=== PATIENT | female | born 1945 | race Caucasian/White ===

== ENCOUNTER 2017-06-02 07:40 | Emergency (ER) | payer OTHER ==
[2017-06-02 07:48] VITALS: BP 111/90; PULSE 78; RESP 16; TEMP 97.9; O2SAT 98
[2017-06-02] MEDS ORDERED: HYOSCYAMINE SULFATE 0.125 MG TAB PO ONE (07:50)
[2017-06-02] MEDS ORDERED: LIDOCAINE 2% VISCOUS 15 ML UDCUP PO ONE (07:50)
[2017-06-02] MEDS ORDERED: MAG HYDROX/AL HYDROX/SIMETH 30 ML UDCUP PO ONE (07:50)
--- NOTE | 2017-06-02 07:53 | EDPHY ---
H & P Stated Complaint: Dx flu 6 days ago, nonproctive cough and epigastric pain. On tamiflu Time Seen by Provider: 06/02/17 07:50 HPI/ROS: CHIEF COMPLAINT: Epigastric pain, cough HISTORY OF PRESENT ILLNESS: The patient is a 71-year-old female who was diagnosed last week with a flu. Yesterday she finished a course of Tamiflu. She states that every day she has taken it she has developed increasing heartburn and epigastric discomfort. She eventually vomited this morning nonbloody. She has been having formed bowel movements but more frequent bowel movements. No fever. Her cough has persisted but is dry. No shortness of breath. No chest pain. REVIEW OF SYSTEMS: Constitutional: denies: chills, fever, recent illness, recent injury EENTM: denies: blurred vision, double vision, nose congestion Respiratory: denies: cough, shortness of breath Cardiac: denies: chest pain, irregular heart rate, lightheadedness, palpitations Gastrointestinal/Abdominal: See HPI Genitourinary: denies: dysuria, frequency, hematuria, pain Musculoskeletal: denies: joint pain, muscle pain Skin: denies: lesions, rash, jaundice, bruising Neurological: denies: headache, numbness, paresthesia, tingling, dizziness, weakness Hematologic/Lymphatic: denies: blood clots, easy bleeding, easy bruising Immunologic/allergic: denies: HIV/AIDS, transplant EXAM: GENERAL: Well-appearing, well-nourished and in no acute distress. HEAD: Atraumatic, normocephalic. EYES: Pupils equal round and reactive to light, extraocular movements intact, sclera anicteric, conjunctiva are normal. ENT: TMs normal, nares patent, oropharynx clear without exudates. Moist mucous membranes. NECK: Normal range of motion, supple without lymphadenopathy or JVD. LUNGS: Breath sounds clear to auscultation bilaterally and equal. No wheezes rales or rhonchi. HEART: Regular rate and rhythm without murmurs, rubs or gallops. ABDOMEN: Soft, nontender, normoactive bowel sounds. No guarding, no rebound. No masses appreciated. BACK: No CVA tenderness, no spinal tenderness, step-offs or deformities EXTREMITIES: Normal range of motion, no pitting or edema. No clubbing or cyanosis. NEUROLOGICAL: Cranial nerves II through XII grossly intact. Normal speech, normal gait. 5/5 strength, normal movement in all extremities, normal sensation PSYCH: Normal mood, normal affect. SKIN: Warm, dry, normal turgor, no visible rashes or lesions. Source: Patient, Family - Personal History Current Tetanus/Diphtheria Vaccine: No Current Tetanus Diphtheria and Acellular Pertussis (TDAP): No - Medical/Surgical History Hx Asthma: No Hx Chronic Respiratory Disease: No Hx Diabetes: No Hx Cardiac Disease: No Hx Renal Disease: No Hx Cirrhosis: No Hx Alcoholism: No Hx HIV/AIDS: No Hx Splenectomy or Spleen Trauma: No Other PMH: Hyperlipidemia, kidney cancer - Family History Significant Family History: No pertinent family hx - Social History Smoking Status: Never smoked Alcohol Use: Sober Constitutional: Initial Vital Signs Temperature (C) 36.6 C 06/02/17 07:42 Heart Rate 78 06/02/17 07:42 Respiratory Rate 16 06/02/17 07:42 Blood Pressure 111/90 H 06/02/17 07:42 O2 Sat (%) 98 06/02/17 07:42 O2 Delivery Mode Room Air Allergies/Adverse Reactions: Penicillins Allergy (Verified 06/02/17 07:49) Pt reports hives Home Medications: Medication Instructions Recorded Famotidine [Pepcid 20 MG (OTC)] 20 mg PO BID #30 tab 06/02/17 Lipitor 06/02/17 Medical Decision Making ED Course/Re-evaluation: The patient is well appearing. She has no abdominal tenderness. She thinks she is having a reaction to Tamiflu. I will start her on antacids and give her GI cocktail here. Fortunately she finished Tamiflu yesterday. She declines lab work , EKG or imaging at this time. I encouraged her to return immediately if her symptoms worsen or she desires testing. We discussed Tamiflu and its limitations. She was surprised that she was not yet over the flu. The patient is feeling completely better after GI cocktail. She is very relieved. Will prescribe her Pepcid. Differential Diagnosis: Partial list of the Differential diagnosis considered include but were not limited to; influenza, medication reaction, GERD, peptic ulcer disease and although unlikely based on the history and physical exam, I also considered biliary disease, perforation, obstruction, ischemia. - Data Points Medications Given: Discontinued Medications Al Hydroxide/Mg Hydroxide (Maalox Susp) 30 ml PO ONCE ONE Stop: 06/02/17 07:51 Last Admin: 06/02/17 07:56 Dose: 30 ml Hyoscyamine Sulfate (Levsin, Hyomax-Sl) 0.25 mg PO ONCE ONE Stop: 06/02/17 07:51 Last Admin: 06/02/17 07:56 Dose: 0.25 mg Lidocaine (Lidocaine 2% Viscous) 15 ml PO ONCE ONE Stop: 06/02/17 07:51 Last Admin: 06/02/17 07:56 Dose: 15 ml Departure - Departure Disposition: Home, Routine, Self-Care Clinical Impression: Influenza, Epigastric pain Medication reaction Qualifiers: Encounter type: initial encounter Qualified Code(s): T88.7XXA - Unspecified adverse effect of drug or medicament, initial encounter Condition: Fair Instructions: Influenza (ED), Epigastric Pain (ED) Referrals: OUT,OF STATE [Other] - As per Instructions Prescriptions: Famotidine [Pepcid 20 MG (OTC)] 20 mg PO BID #30 tab
== END 2017-06-02 08:20 | disposition home or self-care (01) ==
LOC: CED 07:40
DX: R10.13 Epigastric pain (principal); J11.1 Influenza due to unidentified influenza virus with other respiratory manifestations; T37.5X5A Adverse effect of antiviral drugs, initial encounter